=== PATIENT | female | born 1975 | race Caucasian/White ===

== ENCOUNTER 2016-06-10 23:00 | Emergency (ER) | payer SELFPAY ==
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
[~2016-06-10 23:00] MED LIST: AMOXICILLIN875 MG PO; BENTYL10 MG PO; BIOTIN2500 MCG; BUPROPION XL150 MG PO; HYDROCHLOROTHIA25 MG PO; IBUPROFEN400 MG PO; LOMOTIL WHITE2.5 M1 PO; NO MEDICATIONS; PERCOCET5/325 PO; PREDNISONE10 MG PO; ULTRAM PO; VIMOVO DR 500-1 EACH PO; VOLTAREN75 MG PO; XARELTO10 MG PO; ZOFRAN ODT4 MG PO
[2016-06-11 00:15] LABS: POC - CREATININE 1.01 mg/dL (0.44-1.03); POC - GFR >60.0 mL/min (>60)
== END 2016-06-11 00:58 | disposition home or self-care (01) ==
LOC: CFTX 23:00
PROVIDERS: Nurse Practitioner Family
DX: S09.90XA Unspecified injury of head, initial encounter (principal); S00.03XA Contusion of scalp, initial encounter; F17.210 Nicotine dependence, cigarettes, uncomplicated; Z98.890 Other specified postprocedural states; I10 Essential (primary) hypertension; Z79.899 Other long term (current) drug therapy; V49.40XA Driver injured in collision with unspecified motor vehicles in traffic accident, initial encounter; Y93.89 Activity, other specified; Y92.410 Unspecified street and highway as the place of occurrence of the external cause
CPT/HCPCS: 70450; 82565; 99284